=== PATIENT | male | born 1990 | race Two or more races ===

== ENCOUNTER 2024-06-21 13:41 | Emergency (ER) | payer MEDICAID, SELFPAY ==
[2024-06-21 13:42] VITALS: BMI 25.2
[2024-06-21 13:54] VITALS: BP 152/79; PULSE 68; RESP 17; TEMP 36.7; O2SAT 99
--- NOTE | 2024-06-21 14:12 | XR_ITS ---
Examination: Hand, right 3 views Technique: Hand AP, oblique, lateral 3 views Date and time of exam: June 21, 2024 1433 hours INDICATIONS: Swelling involving the right hand with pain accompanied months FINDINGS: Soft tissue swelling adjacent to the fifth metacarpal No fracture No cortical bone destruction No opaque foreign body IMPRESSION: Soft tissue swelling adjacent to the fifth metacarpal No opaque foreign body No cortical bone destruction
--- NOTE | 2024-06-21 14:12 | XR_ITS ---
Examination: Wrist, right 3 views Technique: Wrist AP, oblique, lateral 3 views Date and time of exam: June 21, 2024 1423 hours INDICATIONS: Right wrist swelling and pain today post injury to the hand several months ago FINDINGS: Soft tissue swelling adjacent to the ulnar side of the wrist and fifth metacarpal No fracture or dislocation No cortical bone destruction No opaque foreign body IMPRESSION: Soft tissue swelling as above
[2024-06-21] MEDS: IBUPROFEN TAB 400 MG TABLET 800 MG PO (14:21)
--- NOTE | 2024-06-21 14:22 | PD.EDHAND ---
Upper Extremity Injury RME/HPI General Chief Complaint: Hand/Wrist Problems Stated Complaint: R HAND PAIN & SWELLING Time Seen by Provider: 06/21/24 13:57 Source: patient Arrival date/time: 06/21/24 13:41 This is a 34-year-old male who presented to the emergency department with complaints of right lateral wrist and hand pain. Patient reports he is had this pain for over 4 months. Had an injury approximate 4 months ago had x-rays no fractures depicted then. Reports pain began again 2 days ago he has been wearing a hand brace. .Patient did not attempt any interventions or take any OTC medications prior to ED visit. No recent injury Mode of arrival: ambulatory Limitations: no limitations Related Data Previous Rx's ?Medication ?Instructions ?Recorded ibuprofen 800 mg tablet (IBU) 800 mg PO Q8H #20 tabs 06/21/24 Allergies Allergy/AdvReac Type Severity Reaction Status Date / Time No Known Allergies Allergy Verified 06/21/24 13:43 Review of Systems Review of Systems Systems Reviewed: All systems reviewed, normal except as documented Narrative Review of Systems: Gen: No fever, no chills, no weight loss EYES: No discharge, no visual changes, no pain HEENT: No ear pain, no congestion, no sore throat PULM: No shortness of breath, no cough, no congestion CV: No chest pain, no dyspnea on exertion, no palpitations GI: No nausea, no vomiting, no diarrhea, no pain, no constipation : No frequency, no urgency, no dysuria Musc/skel: No joint pain, no back pain Skin: No rash Psyc: No hallucinations, no depression Heme/Lymph: No easy bleeding or bruising tendencies Neuro: No weakness, no headache ED Exam General Limitations: Present no limitations General appearance: Present alert and in no apparent distress Head Head exam: Present atraumatic Eye Eye exam: Present normal appearance, PERRL and EOMI ENT ENT exam: Present normal exam, normal oropharynx and mucous membranes moist Neck Neck exam: Present normal inspection, full ROM and trachea midline Chest Chest inspection: Present normal inspection and symmetric chest wall rise Respiratory Respiratory exam: Present normal lung sounds bilaterally Cardiovascular Cardiovascular exam: Present regular rate, normal rhythm and normal heart sounds Abdominal Exam Abdominal exam: Present soft and normal bowel sounds Extremities Exam Extremities exam: Present normal inspection and full ROM Back Exam Back exam: Present normal inspection and full ROM Neurological Exam Neurological exam: Present alert, oriented X3 and CN II-XII intact Psychiatric Psychiatric exam: Present normal affect and normal mood Skin Skin exam: Present warm, dry, intact and normal color Course Quality Measures none Orders Category Date Time Status XR hand comp RT min 3V Stat Exams 06/21/24 14:12 Completed XR wrist comp RT min 3V Stat Exams 06/21/24 14:12 Completed Ibuprofen Tab [Motrin Tab] Med 06/21/24 14:12 Discontinued 800 mg PO X1 ONE Vital Signs Vital signs: Vital Signs Temperature 98.0 F 06/21/24 13:54 Pulse Rate 68 06/21/24 13:54 Respiratory Rate 17 06/21/24 13:54 Blood Pressure 152/79 H 06/21/24 13:54 Pulse Oximetry (%) 99 06/21/24 13:54 Oxygen Delivery Method Room Air 06/21/24 13:54 Extremity Injury Patient data External records reviewed:: [facility] previous records Clinical information provided by:: patient Social determinants that could affect healthcare access:: none Patient has the following chronic illnesses:: None How is presenting disease/condition affected by chronic disease/condition?: no chronic disease Evaluation data The following diagnostics were reviewed and interpreted by me:: radiology exam(s) Lab and/or radiology exams considered but not ordered:: No Interpretation Summary: Examination: Hand, right 3 views Technique: Hand AP, oblique, lateral 3 views Date and time of exam: June 21, 2024 1433 hours INDICATIONS: Swelling involving the right hand with pain accompanied months FINDINGS: Soft tissue swelling adjacent to the fifth metacarpal No fracture No cortical bone destruction No opaque foreign body IMPRESSION: Soft tissue swelling adjacent to the fifth metacarpal No opaque foreign body No cortical bone destruction Examination: Wrist, right 3 views Technique: Wrist AP, oblique, lateral 3 views Date and time of exam: June 21, 2024 1423 hours INDICATIONS: Right wrist swelling and pain today post injury to the hand several months ago FINDINGS: Soft tissue swelling adjacent to the ulnar side of the wrist and fifth metacarpal No fracture or dislocation No cortical bone destruction No opaque foreign body IMPRESSION: Soft tissue swelling as above Medications / Prescriptions Medications or Prescriptions considered but not ordered:: No Medication administrations:: Medication Administration History Discontinued Medications Ibuprofen (Ibuprofen Tab 400 Mg Tablet) 800 mg PO X1 ONE Stop: 06/21/24 14:13 Last Admin: 06/21/24 14:21 Dose: 800 mg Documented By: All medications administered and effective Consultations Consultation(s) initiated? (list below): No Diagnosis Upper Extremity Injury Differential Diagnosis: sprain and strain of wrist, fracture of wrist, finger sprain and fracture of hand Most likely diagnosis given after review of the tests above:: Wrist sprain Admission Indicated Admission indicated?: not indicated Admission Request Was there a request for admission?: No Disposition Plan Disposition Plan: Discharge Discharge Attestation Discharge Attestation: The patient and all family members were given an opportunity to ask questions and understood the discharge instructions. Discharge instructions specifically effects, indications for sooner follow up or return to the emergency department, and the expected course of current diagnosis. Patient condition: Stable Discharge Plan Plan Patient Disposition: HOME (Self Care) Patient condition on transfer: Stable Prescriptions/Referrals Prescriptions/Med Rec: New ibuprofen [IBU] 800 mg tablet 800 mg PO Q8H Qty: 20 0RF Referrals: No Primary/Family,Physician [Primary Care Provider] - In 1 week Problem List Clinical Impression: Sprain and strain of wrist Patient/Caregiver Discharge Instructions Discharge Activity: activity as tolerated Additional Instructions: Please follow-up with your doctor clinic on Monday for follow-up care. Your x-ray does not demonstrate any fractures. Does have some small swelling tissue can be related to a sprain or old injury. Medication sent to the pharmacy. Use your brace that will help with your pain. Return to the emergency department this any worsening symptoms change in condition. Print Language: Kinyarwanda Stand Alone Forms: [employer] Award Info., Patient Portal Info Letter Vaccines Vaccines Given During Stay: Hepatitis B ROBY/RAZA Supervising Physician ROBY/RAZA Supervising Physician: Dr Johnson
== END 2024-06-21 15:38 | disposition home or self-care (01) ==
PROVIDERS: Emergency Provider Emergency Medicine
DX: S63.501A Unspecified sprain of right wrist, initial encounter (principal); S66.911A Strain of unspecified muscle, fascia and tendon at wrist and hand level, right hand, initial encounter; X58.XXXA Exposure to other specified factors, initial encounter
CPT/HCPCS: 73110; 73130; 99283; A9270

== ENCOUNTER 2024-06-27 20:56 | Emergency (ER) | payer MEDICAID, SELFPAY ==
[2024-06-27 20:57] VITALS: BMI 25.2
[2024-06-27 21:14] VITALS: BP 142/85; PULSE 59; RESP 16; TEMP 37; O2SAT 98
--- NOTE | 2024-06-27 21:29 | XR_ITS ---
Examination: CT abdomen with intravenous contrast CT pelvis with intravenous contrast 2-D coronal reconstructions 2-D sagittal reconstructions Date and time of exam:June 27, 2024 1138 hrs. Indications: Right upper abdominal pain and groin pain today. CTDI: vol (mGy) 6.16 DLP: (mGycm) 346 Technique: Multiple axial sections of the abdomen and pelvis have been obtained. 64 slice high-resolution scanner used. 3 mm axial sections have been obtained, post intravenous injection 60 cc [id number] 2-D sagittal, coronal reconstructions obtained. Low dose protocols were performed. One or more of the following dose reduction techniques were used; automated exposure control, adjustment of the mA and/or KV according to patient size, use of iterative reconstruction technique. Findings: No focal liver or splenic lesions Tiny gallstones no pancreatic or adrenal mass No renal or ureteral calculi, no hydronephrosis Aorta normal size Normal appendix No bowel obstruction or free air No diverticulitis Urinary bladder intact Impression: No renal or ureteral calculi, no hydronephrosis Normal appendix No inguinal or femoral hernia Small right varicocele
--- NOTE | 2024-06-27 21:29 | XR_ITS ---
Examination: Testicular sonography complete Technique: Multiple high resolution grayscale sonographic images testes, assessment arterial inflow venous outflow Doppler spectral analysis carful analysis Exam date and time: June 27, 2000 2410 0 2:00 PM Indications: Onset right-sided testicular pain beginning 2 days ago Findings: Right testis 4.5 x 2.3 x 2.7 cm Epididymis 16mm epididymis, epididymal cyst 5 mm Arterial flow testicle. No testicular mass Small varicocele Left testis 3.9 x 2.6 x 3.1 cm Epididymis 12 mm Arterial flow testicle. No testicular mass Mild hydrocele Impression: No testicular torsion or testicular mass Small benign right epididymal cyst Small right varicocele
--- NOTE | 2024-06-27 21:30 | PD.EDRME ---
Rapid Medical Screening Exam [facility] Arrival date/time: 06/27/24 20:56 34M with no significant PMH presents to ED with 1 week of RLQ/umbilical pain that radiates to R testicle. Patient felt it moving, and thinks it may be a hernia. Patient denies dysuria. Vital signs: Vital Signs Temperature 98.6 F 06/27/24 21:14 Pulse Rate 59 L 06/27/24 21:14 Respiratory Rate 16 06/27/24 21:14 Blood Pressure 142/85 H 06/27/24 21:14 Pulse Oximetry (%) 98 06/27/24 21:14 Oxygen Delivery Method Room Air 06/27/24 21:14
[2024-06-27 21:46] LABS: Basophils % (Auto) 1 % (0-2.5); Eosinophils # (Auto) 0.2 Thou/mm3 (0.0-0.5); Eosinophils % (Auto) 4 % (0-10); Hematocrit 41.1 % (41.0-53.0); Hemoglobin 14.2 g/dL (13.5-16.0); Immature Granulocytes % (Auto) 0 % (0-0); Immature Granulocytes Auto 0.01 Thou/mm3 (0.00-0.00); Lymphocytes # (Auto) 2.6 Thou/mm3 (1.0-4.8); Lymphocytes % (Auto) 42 % (10-50); Mean Corpuscular HGB Conc 34.5 g/dl (31.0-37.0); Mean Corpuscular Hemoglobin 30.1 pg (25.0-35.0); Mean Corpuscular Volume 87 fL (80-100); Monocytes # (Auto) 0.7 Thou/mm3 (0.0-0.8); Monocytes % (Auto) 12 % (0-12); Neutrophils # (Auto) 2.6 Thou/mm3 (1.8-7.7); Neutrophils % (Auto) 42 % (37-80); Nucleated Red Blood Cell % 0 /100 WBC (0); Platelet Count 255 Thou/mm3 (140-440); RDW Standard Deviation 42.5 fL (35.1-43.9); Red Blood Count 4.71 Miln/mm3 (4.50-5.90); White Blood Count 6.3 Thou/mm3 (3.8-10.6)
[2024-06-27 21:52] LABS: Collection Type, Urine Clean Catch; Squamous Epithelial Cell,Urine 0 /hpf (0-5)
[2024-06-27 21:57] LABS: Bilirubin,Urine Negative (Negative); Blood,Urine Negative (Negative); Clarity,Urine Clear (Clear/Hazy); Color,Urine Colorless (Lt Yel-Yel); Culture Indicated,Urine Not Indicated; Glucose, Urine Negative (Negative); Ketones,Urine Negative (Negative); Leukocyte Esterase,Urine Negative (Negative); Nitrite,Urine Negative (Negative); Protein,Urine Negative (Neg - Trace); RBC,Urine < 1 /hpf (0-3); Specific Gravity,Urine 1.013 (1.001-1.035); Urobilinogen,Urine Negative mg/dL (0.0-1.0); WBC,Urine < 1 /hpf (0-5)
[2024-06-27 22:03] LABS: Amphetamine/Methamp Scrn,U Negative (Negative); Barbiturate Screen,Urine Negative (Negative); Benzodiazepines Screen,Urine Negative (Negative); Benzoylecgonine Screen, Ur Negative (Negative); Fentanyl Screen,Urine Negative (Negative); Opiate Screen,Urine Negative (Negative); THC Screen,Urine Negative (Negative)
[2024-06-27 22:05] LABS: Alanine Aminotransferase 29 U/L (10-49); Albumin, Serum 4.5 gm/dL (3.5-5.0); Albumin/Globulin Ratio 1.8 (1.2-2.2); Alkaline Phosphatase 80 U/L (46-116); Anion Gap 2 (7-16); Aspartate Amino Transferase 35 U/L (0-34); BUN/Creatinine Ratio 15 Ratio (12-20); Bilirubin,Total 0.9 mg/dL (0.3-1.2); Blood Urea Nitrogen 16 mg/dL (9-23); Calcium 9.8 mg/dL (8.3-10.6); Calcium (Corrected) 9.8 mg/dL (8.5-10.1); Carbon Dioxide 29.7 mMol/L (20.0-31.0); Chloride 106 mMol/L (98-107); Creatinine (Component) 1.1 mg/dL (0.6-1.3); Estimated Creatinine Clearance 100.8 mL/min (>60); Globulin 2.5 gm/dL (2.3-3.5); Glucose 88 mg/dL (74-106); Lipase 52 U/L (12-53); Osmolality,Calculated 275 (275-295); Potassium 4.7 mMol/L (3.4-5.1); Sodium 138 mMol/L (136-145); eGFR > 60 See Note
--- NOTE | 2024-06-27 22:21 | PD.EDABDPN ---
ED Abdominal Pain RME/HPI General Chief Complaint: Abdominal Pain Stated complaint: ABD PAIN Time seen by provider: 06/27/24 22:01 Arrival date/time: 06/27/24 20:56 RME / HPI RME / HPI narrative: 06/27/24 20:56 34M with no significant PMH presents to ED with 1 week of RLQ/umbilical pain that radiates to R testicle. Patient felt it moving, and thinks it may be a hernia. Patient denies dysuria. ------ Dr. Salazar?s Main ED Evaluation: 34yo male with no significant past medical history presents to the ED for a chief complaint of intermittent sharp RLQ pain. Patient states he started having umbilical pain years ago . Patient states he only had the episodes of pain once every few months. Patient states he's started having RLQ pain this month, reporting this is his 4th episode of pain. He states the pain radiates down his right testicle and to his right flank. He denies any N/V/D, fever, chills, hematuria, UTI symptoms, abnormal discharge or any other associated symptoms. Denies having sexual activity with multiple partners. No known allergies. Related Data Previous Rx's ?Medication ?Instructions ?Recorded ibuprofen 800 mg tablet (IBU) 800 mg PO Q8H #20 tabs 06/21/24 Allergies Allergy/AdvReac Type Severity Reaction Status Date / Time No Known Allergies Allergy Verified 06/21/24 13:43 Review of Systems Review of Systems Systems Reviewed: All systems reviewed, normal except as documented Past Medical History Past Medical History CARDIAC: Negative Cardiac Disorders or Congestive Heart Failure RESPIRATORY: Negative Chronic Obstructive Pulmonary Disease (COPD) or Asthma GENITOURINARY: Negative Renal Disease ENDOCRINE: Negative Diabetes Mellitus Type 1 or Diabetes Mellitus Type 2 HEMATOLOGIC: Negative Sickle Cell Disease Social History SMOKING STATUS: Never smoker ED Exam Narrative Physical exam: GENERAL APPEARANCE: alert and oriented x 4, well-developed, well-nourished, no acute distress VITALS: All vitals were reviewed and the pulse ox is 98% on room air, which is normal according to my interpretation. HEENT: Normocephalic, atraumatic; pupils equal, round, reactive to light; EOMI; mucous membranes pink, moist; oropharynx clear NECK: Supple LUNGS: CTABL; no wheezes, no rales, no rhonchi HEART: Regular rate, regular rhythm; normal S1, S2; no murmurs ABDOMEN: non distended; normal BS; soft, mild RLQ tenderness, no guarding, no rebound; no masses, no organomegaly, no hernia BACK: moderate CVA tenderness EXTREMITIES: atraumatic; no edema NEUROLOGIC: awake; alert and oriented x4; cranial nerves II-XII grossly intact; no focal sensory or motor deficits PSYCHIATRIC: appropriate mood and affect SKIN: warm, dry, normal color; no rashes Course Quality Measures none Orders Category Date Time Status CT Screening NOW Care 06/27/24 21:29 Completed Insert IV NOW Care 06/27/24 21:29 Completed Discharge Routine Discharge 06/28/24 00:[address] abdomen pelvis w con Stat Exams 06/27/24 21:29 Completed US testicular Stat Exams 06/27/24 21:29 Completed XR chest 1V portable Stat Exams 06/27/24 22:43 Completed CBC Stat Lab 06/27/24 21:37 Completed CMP [Comprehensive Metabolic Panel] Stat Lab 06/27/24 21:37 Completed Chlamydia/GC/TV - PCR Stat Lab 06/27/24 21:47 Received Drug Screen,Urine Stat Lab 06/27/24 21:47 Completed Lipase Stat Lab 06/27/24 21:37 Completed Urinalysis, C/S if Indicated Stat Lab 06/27/24 21:47 Completed Ketorolac Inj [Toradol Inj] Med 06/27/24 22:44 Discontinued 30 mg IVP X1 ONE Vital Signs Vital signs: Vital Signs Temperature 98.6 F 06/27/24 21:14 Pulse Rate 59 L 06/27/24 21:14 Respiratory Rate 16 06/27/24 21:14 Blood Pressure 142/85 H 06/27/24 21:14 Pulse Oximetry (%) 98 06/27/24 21:14 Oxygen Delivery Method Room Air 06/27/24 21:14 Abdominal Pain MDM Patient data External records reviewed:: [facility] previous records (Per chart review, patient has no relevant previous ED visits to this facility.) Clinical information provided by:: patient Social determinants that could affect healthcare access:: none Patient has the following chronic illnesses:: none How is presenting disease/condition affected by chronic disease/condition?: no chronic disease Evaluation data The following diagnostics were reviewed and interpreted by me:: lab results and radiology exam(s) Lab and/or radiology exams considered but not ordered:: none Interpretation Summary: CBC is normal, CMP is normal, Lipase is normal, UA is unremarkable, UDS is negative, according to my interpretation. ----- [place] [facility] Report Signed Patient: VIN OLVERA. Record#: [id number] Birthdate: 1990 Age/Sex: 34 / M Location: [facility] Attending Dr: Ordering Physician: Ricky Nayak PA-C Date of Service: 06/27/24 Procedure(s): US testicular Accession Number(s): [id number] cc: Ronn Sullivan MD; Ricky Nayak PA-C~ Examination: Testicular sonography complete Technique: Multiple high resolution grayscale sonographic images testes, assessment arterial inflow venous outflow Doppler spectral analysis carful analysis Exam date and time: June 27, 2000 2410 0 2:00 PM Indications: Onset right-sided testicular pain beginning 2 days ago Findings: Right testis 4.5 x 2.3 x 2.7 cm Epididymis 16mm epididymis, epididymal cyst 5 mm Arterial flow testicle. No testicular mass Small varicocele Left testis 3.9 x 2.6 x 3.1 cm Epididymis 12 mm Arterial flow testicle. No testicular mass Mild hydrocele Impression: No testicular torsion or testicular mass Small benign right epididymal cyst Small right varicocele Dictated By: Ronn Sullivan MD Signed By: <Electronically signed by Ronn Sullivan MD in OV> 06/27/242231 [place] [facility] Report Signed Patient: VIN OLVERA [facility]. Record#: [id number] Birthdate: 1990 Age/Sex: 34 / M Location: [facility] Attending Dr: Ordering Physician: Ricky Nayak PA-C Date of Service: 06/27/24 Procedure(s): CT abdomen pelvis w con Accession Number(s): [id number] cc: Ronn Sullivan MD; Ricky Nayak PA-C~ Examination: CT abdomen with intravenous contrast CT pelvis with intravenous contrast 2-D coronal reconstructions 2-D sagittal reconstructions Date and time of exam:June 27, 2024 1138 hrs. Indications: Right upper abdominal pain and groin pain today. CTDI: vol (mGy) 6.16 DLP: (mGycm) 346 Technique: Multiple axial sections of the abdomen and pelvis have been obtained. 64 slice high-resolution scanner used. 3 mm axial sections have been obtained, post intravenous injection 60 cc [id number] 2-D sagittal, coronal reconstructions obtained. Low dose protocols were performed. One or more of the following dose reduction techniques were used; automated exposure control, adjustment of the mA and/or KV according to patient size, use of iterative reconstruction technique. Findings: No focal liver or splenic lesions Tiny gallstones no pancreatic or adrenal mass No renal or ureteral calculi, no hydronephrosis Aorta normal size Normal appendix No bowel obstruction or free air No diverticulitis Urinary bladder intact Impression: No renal or ureteral calculi, no hydronephrosis Normal appendix No inguinal or femoral hernia Small right varicocele Dictated By: Ronn Sullivan MD Signed By: <Electronically signed by Ronn Sullivan MD in OV> 06/28/24 0000 Medications / Prescriptions Medications or Prescriptions considered but not ordered:: none Medication administrations:: Medication Administration History Discontinued Medications Ketorolac Tromethamine (Ketorolac Inj 30 Mg/Ml Vial) 30 mg IVP X1 ONE Stop: 06/27/24 22:45 Last Admin: 06/27/24 22:54 Dose: 30 mg Documented By: SF see above, if any Consultations Consultation(s) initiated? (list below): No Diagnosis Differential diagnosis abdominal pain: acute appendicitis, calculus of kidney and other (UTI, pyelonephritis, epididymitis) Most likely diagnosis given after review of the tests above:: see below Admission Indicated Admission indicated?: not indicated Admission Request Was there a request for admission?: No Disposition Plan Disposition Plan: Discharge Discharge Attestation Discharge Attestation: The patient and all family members were given an opportunity to ask questions and understood the discharge instructions. Discharge instructions specifically effects, indications for sooner follow up or return to the emergency department, and the expected course of current diagnosis. Patient condition: Stable Discharge Plan Plan Patient Disposition: HOME (Self Care) Disposition Comment: Stable for discharge Patient condition on transfer: Stable Prescriptions/Referrals Prescriptions/Med Rec: No Action ibuprofen [IBU] 800 mg tablet 800 mg PO Q8H Qty: 20 0RF Problem List Clinical Impression: Abdominal pain Patient/Caregiver Discharge Instructions Discharge Activity: activity as tolerated Education Materials: Abdominal Pain Additional Instructions: Please return to the emergency department for any worsening or any further medical problems Follow-up with your primary care doctor within the next several days The CAT scan of your belly showed a normal appendix and no other problems. Please pay attention your body and if you get worse return to the ER right away Print Language: [place]erratian Stand Alone Forms: [employer] Award Info., Patient Portal Info Letter
--- NOTE | 2024-06-27 22:43 | XR_ITS ---
Examination: AP chest single view Technique: AP portable upright chest single view Exam date and time: June 19, 2024 1051 hrs. Indications: Chest pain today Findings: Normal heart size. Lungs are clear. The osseous structures are intact Impression: No active disease
[2024-06-27] MEDS: KETOROLAC INJ 30 MG/ML VIAL IVP (22:54)
[2024-06-28 00:58] VITALS: RESP 18
[2024-06-28 17:15] LABS: Chlamydia trachomatis PCR Negative (Not Detect); Neisseria Gonorrhoeae DNA PCR Negative (Not Detect); Trichomonas Negative (Negative)
== END 2024-06-28 00:58 | disposition home or self-care (01) ==
LOC: SERX 06-28 02:18
PROVIDERS: Physician Assistant; Emergency Provider Emergency Medicine
DX: I86.1 Scrotal varices (principal); N50.3 Cyst of epididymis; R07.9 Chest pain, unspecified
CPT/HCPCS: 36415; 71045; 74177; 76870; 80053; 80307; 81001; 83690; 85025; 87491; 87591; 87661; 99285; A4649; J1885; Q9967

== ENCOUNTER 2024-06-29 05:45 | Emergency (ER) | payer MEDICAID, SELFPAY ==
[2024-06-29 05:46] VITALS: BMI 25.2
[2024-06-29 06:01] VITALS: BP 106/65; PULSE 75; RESP 19; TEMP 36.5; O2SAT 99
--- NOTE | 2024-06-29 06:11 | PD.EDRME ---
Rapid Medical Screening Exam [facility] Arrival date/time: 06/29/24 05:45 34-year-old male with no significant past medical history presents emergency department complaining of bilateral flank pain that started last night. Chief Complaint: Abdominal Pain Time Seen by Provider: 06/29/24 06:05 Vital signs: Vital Signs Temperature 97.7 F 06/29/24 06:01 Pulse Rate 75 06/29/24 06:01 Respiratory Rate 19 06/29/24 06:01 Blood Pressure 106/65 06/29/24 06:01 Pulse Oximetry (%) 99 06/29/24 06:01 Oxygen Delivery Method Room Air 06/29/24 06:01 Vital signs reviewed by provider: Yes
[2024-06-29 06:22] LABS: Collection Type, Urine Clean Catch; Squamous Epithelial Cell,Urine 0 /hpf (0-5)
[2024-06-29] MEDS: KETOROLAC INJ 60 MG/2 ML VIAL 30 MG IM (06:39)
[2024-06-29 06:59] LABS: Basophils % (Auto) 1 % (0-2.5); Eosinophils # (Auto) 0.2 Thou/mm3 (0.0-0.5); Eosinophils % (Auto) 3 % (0-10); Hematocrit 42.5 % (41.0-53.0); Hemoglobin 14.4 g/dL (13.5-16.0); Immature Granulocytes % (Auto) 0 % (0-0); Immature Granulocytes Auto 0.02 Thou/mm3 (0.00-0.00); Lymphocytes % (Auto) 26 % (10-50); Mean Corpuscular HGB Conc 33.9 g/dl (31.0-37.0); Mean Corpuscular Hemoglobin 30.3 pg (25.0-35.0); Mean Corpuscular Volume 89 fL (80-100); Monocytes # (Auto) 0.7 Thou/mm3 (0.0-0.8); Monocytes % (Auto) 10 % (0-12); Neutrophils # (Auto) 4.5 Thou/mm3 (1.8-7.7); Neutrophils % (Auto) 61 % (37-80); Nucleated Red Blood Cell % 0 /100 WBC (0); Platelet Count 233 Thou/mm3 (140-440); RDW Standard Deviation 42.8 fL (35.1-43.9); Red Blood Count 4.76 Miln/mm3 (4.50-5.90); White Blood Count 7.4 Thou/mm3 (3.8-10.6)
[2024-06-29 07:19] LABS: Alanine Aminotransferase 27 U/L (10-49); Albumin, Serum 4.4 gm/dL (3.5-5.0); Albumin/Globulin Ratio 1.6 (1.2-2.2); Alkaline Phosphatase 80 U/L (46-116); Anion Gap 3 (7-16); Aspartate Amino Transferase 31 U/L (0-34); BUN/Creatinine Ratio 16 Ratio (12-20); Blood Urea Nitrogen 16 mg/dL (9-23); Calcium 9.1 mg/dL (8.3-10.6); Calcium (Corrected) 9.1 mg/dL (8.5-10.1); Chloride 105 mMol/L (98-107); Estimated Creatinine Clearance 110.9 mL/min (>60); Globulin 2.7 gm/dL (2.3-3.5); Glucose 98 mg/dL (74-106); Lipase 43 U/L (12-53); Osmolality,Calculated 273 (275-295); Potassium 4.1 mMol/L (3.4-5.1); Sodium 136 mMol/L (136-145); Total Protein 7.1 gm/dL (5.7-8.2); eGFR > 60 See Note
[2024-06-29 07:25] LABS: Bilirubin,Urine Negative (Negative); Blood,Urine Negative (Negative); Clarity,Urine Clear (Clear/Hazy); Color,Urine Lt-Yellow (Lt Yel-Yel); Culture Indicated,Urine Not Indicated; Glucose, Urine Negative (Negative); Ketones,Urine Negative (Negative); Leukocyte Esterase,Urine Negative (Negative); Nitrite,Urine Negative (Negative); Protein,Urine Negative (Neg - Trace); RBC,Urine 1 /hpf (0-3); Specific Gravity,Urine 1.023 (1.001-1.035); Urobilinogen,Urine Negative mg/dL (0.0-1.0); WBC,Urine 1 /hpf (0-5)
[2024-06-29 07:34] LABS: Amphetamine/Methamp Scrn,U Negative (Negative); Barbiturate Screen,Urine Negative (Negative); Benzodiazepines Screen,Urine Negative (Negative); Benzoylecgonine Screen, Ur Negative (Negative); Fentanyl Screen,Urine Negative (Negative); Opiate Screen,Urine Negative (Negative); THC Screen,Urine Negative (Negative)
--- NOTE | 2024-06-29 08:03 | PD.EDABDPN ---
ED Abdominal Pain RME/HPI General Chief Complaint: Abdominal Pain Stated complaint: RIGHT FLANK PAIN Time seen by provider: 06/29/24 06:05 Arrival date/time: 06/29/24 05:45 34-year-old male with no significant past medical history presents emergency department complaining of bilateral flank pain that started last night. Patient denies any fever, chills, nausea vomiting, diarrhea, abdominal pain, hematuria, rectal bleeding, or any other associated symptom. Source: patient Mode of arrival: ambulatory Limitations: no limitations RME / HPI RME / HPI narrative: 06/29/24 05:45 34-year-old male with no significant past medical history presents emergency department complaining of bilateral flank pain that started last night. Related Data Previous Rx's ?Medication ?Instructions ?Recorded ibuprofen 800 mg tablet (IBU) 800 mg PO Q8H #20 tabs 06/21/24 cyclobenzaprine 10 mg tablet 10 mg PO TID PRN muscle spasm #10 06/29/24 tabs Allergies Allergy/AdvReac Type Severity Reaction Status Date / Time No Known Allergies Allergy Verified 06/21/24 13:43 Review of Systems Review of Systems Systems Reviewed: All systems reviewed, normal except as documented Constitutional Constitutional: Reports system reviewed and no additional complaints, except as documented, Denies body ache(s), Denies chills and Denies fever(s) Eyes Eyes: Reports system reviewed and no additional complaints, except as documented and Denies change in vision ENT Ears, Nose, Mouth, and Throat: Reports system reviewed and no additional complaints, except as documented, Denies disequilibrium, Denies dizziness, Denies sore throat and Denies vertigo Cardiovascular Cardiovascular: Reports system reviewed and no additional complaints, except as documented, Denies chest pain and Denies dyspnea Respiratory Respiratory: Reports system reviewed and no additional complaints, except as documented, Denies chest congestion, Denies cough and Denies dyspnea Gastrointestinal Gastrointestinal: Reports system reviewed and no additional complaints, except as documented, Denies abdominal pain, Denies nausea and Denies vomiting Musculoskeletal Musculoskeletal: Reports system reviewed and no additional complaints, except as documented, Denies abnormal gait, Denies arthralgias and Reports back pain Integumentary/Breasts Skin/Breast: Reports system reviewed and no additional complaints, except as documented, Denies erythema, Denies rash and Denies wounds Neurologic Neurologic: Reports system reviewed and no additional complaints, except as documented, Denies abnormal gait, Denies disequilibrium, Denies dizziness and Denies vertigo Past Medical History Past Medical History CARDIAC: Negative Cardiac Disorders or Congestive Heart Failure RESPIRATORY: Negative Chronic Obstructive Pulmonary Disease (COPD) or Asthma GENITOURINARY: Negative Renal Disease ENDOCRINE: Negative Diabetes Mellitus Type 1 or Diabetes Mellitus Type 2 HEMATOLOGIC: Negative Sickle Cell Disease Social History SMOKING STATUS: Never smoker ED Exam General Limitations: Present no limitations General appearance: Present alert and in no apparent distress Head Head exam: Present atraumatic Eye Eye exam: Present normal appearance, PERRL and EOMI ENT ENT exam: Present normal exam, normal oropharynx and mucous membranes moist Neck Neck exam: Present normal inspection, full ROM and trachea midline Chest Chest inspection: Present normal inspection and symmetric chest wall rise Respiratory Respiratory exam: Present normal lung sounds bilaterally Cardiovascular Cardiovascular exam: Present regular rate, normal rhythm and normal heart sounds Abdominal Exam Abdominal exam: Present soft and normal bowel sounds Extremities Exam Extremities exam: Present normal inspection and full ROM Back Exam Back exam: Present normal inspection, full ROM and tenderness (Lower back); Absent CVA tenderness (R) or CVA tenderness (L) Neurological Exam Neurological exam: Present alert, oriented X3 and CN II-XII intact Psychiatric Psychiatric exam: Present normal affect and normal mood Skin Skin exam: Present warm, dry, intact and normal color Course Quality Measures none Orders Category Date Time Status CBC Stat Lab 06/29/24 06:49 Completed CMP [Comprehensive Metabolic Panel] Stat Lab 06/29/24 06:49 Completed Drug Screen,Urine Stat Lab 06/29/24 06:15 Completed Lipase Stat Lab 06/29/24 06:49 Completed Urinalysis, C/S if Indicated Stat Lab 06/29/24 06:15 Completed Ketorolac Inj [Toradol Inj] Med 06/29/24 06:11 Discontinued 30 mg IM X1 ONE Vital Signs Vital signs: Vital Signs Temperature 97.7 F 06/29/24 06:01 Pulse Rate 75 06/29/24 06:01 Respiratory Rate 19 06/29/24 06:01 Blood Pressure 106/65 06/29/24 06:01 Pulse Oximetry (%) 99 06/29/24 06:01 Oxygen Delivery Method Room Air 06/29/24 06:01 99% room air within normal limits. Abdominal Pain MDM MDM Narrative MDM Narrative:: 34-year-old male with no significant past medical history presents emergency department complaining of bilateral flank pain that started last night. Patient denies any fever, chills, nausea vomiting, diarrhea, abdominal pain, hematuria, rectal bleeding, or any other associated symptom. Patient appears nontoxic and hemodynamically stable. Patient denies any bowel or bladder dysfunction or any paresthesia, or saddle anesthesia. Patient GCS of 15 with steady gait. CBC, CMP, urinalysis, and drug toxicology were unremarkable. Patient recently had CT scan abdomen pelvis which was unremarkable. Patient discharged home with pain medication and muscle relaxer instructed to get some rest the next 2 to 3 days and follow-up with primary care provider upon discharge. Instructed to return immediately to the emergency department for any worsening symptoms or as needed. Patient data External records reviewed:: [facility] previous records Clinical information provided by:: patient Social determinants that could affect healthcare access:: none Patient has the following chronic illnesses:: See chart How is presenting disease/condition affected by chronic disease/condition?: uneffected by Evaluation data The following diagnostics were reviewed and interpreted by me:: lab results Lab and/or radiology exams considered but not ordered:: Ordered Interpretation Summary: Interpreted by me Medications / Prescriptions Medications or Prescriptions considered but not ordered:: Ordered Medication administrations:: Medication Administration History Discontinued Medications Ketorolac Tromethamine (Ketorolac Inj 60 Mg/2 Ml Vial) 30 mg IM X1 ONE Stop: 06/29/24 06:12 Last Admin: 06/29/24 06:39 Dose: 30 mg Documented By: CB Given Consultations Consultation(s) initiated? (list below): No Diagnosis Differential diagnosis abdominal pain: abdominal pain, acute appendicitis, calculus of kidney, constipation, diverticulitis, gastroenteritis, pancreatitis and small bowel obstruction Most likely diagnosis given after review of the tests above:: Back pain Admission Indicated Admission indicated?: not indicated Admission Request Was there a request for admission?: No Disposition Plan Disposition Plan: Discharge Discharge Attestation Discharge Attestation: The patient and all family members were given an opportunity to ask questions and understood the discharge instructions. Discharge instructions specifically effects, indications for sooner follow up or return to the emergency department, and the expected course of current diagnosis. Patient condition: Stable Discharge Plan Plan Patient Disposition: HOME (Self Care) Disposition Comment: Stable Prescriptions/Referrals Prescriptions/Med Rec: New cyclobenzaprine 10 mg tablet 10 mg PO TID PRN (Reason: muscle spasm) Qty: 10 0RF No Action ibuprofen [IBU] 800 mg tablet 800 mg PO Q8H Qty: 20 0RF Referrals: No Primary/Family,Physician [Primary Care Provider] - In 1 week Problem List Clinical Impression: Back pain Patient/Caregiver Discharge Instructions Education Materials: Back Safety: Bending, Back Safety: Lifting, Anatomy of a Normal Spine, Back Basics: A Healthy Spine Additional Instructions: Take medication as prescribed. Follow-up with primary care provider in 2 to 3 days. Return to the emergency department for any worsening symptoms or as needed. Print Language: Scottish Stand Alone Forms: [employer] Award Info., Work/School Release, Patient Portal Info Letter PA/RAZA Supervising Physician PA/RAZA Supervising Physician: Dr. Johnson
== END 2024-06-29 09:18 | disposition home or self-care (01) ==
PROVIDERS: Emergency Provider Emergency Medicine
DX: M54.9 Dorsalgia, unspecified (principal)
CPT/HCPCS: 36415; 80053; 80307; 81001; 83690; 85025; 96372; 99283; J1885